=== PATIENT | female | born 1985 | race Caucasian/White ===

== ENCOUNTER 2016-04-16 10:32 | Emergency (ER) | payer OTHER ==
[2016-04-16] MEDS ORDERED: ONDANSETRON 4 MG ODT TAB ONE (11:21)
[2016-04-16 11:26] LABS: SPECIFIC GRAVITY 1.015 (1.001-1.030); URINE BILIRUBIN NEGATIVE (NEGATIVE); URINE BLOOD NEGATIVE (NEGATIVE); URINE GLUCOSE (UA) NEGATIVE (NEGATIVE); URINE LEUKOCYTE ESTERASE NEGATIVE (NEGATIVE); URINE NITRITE NEGATIVE (NEGATIVE); URINE PROTEIN NEGATIVE (NEGATIVE); URINE UROBILINOGEN NORMAL (0-1 mg/dl)
[2016-04-16 11:27] LABS: URINE APPEARANCE CLEAR; URINE COLOR YELLOW
[2016-04-16 11:29] LABS: HCG,QUALITATIVE URINE NEGATIVE
== END 2016-04-16 11:41 | disposition home or self-care (01) ==
LOC: ED 10:32
DX: M54.40 Lumbago with sciatica, unspecified side (principal); F17.210 Nicotine dependence, cigarettes, uncomplicated
CPT/HCPCS: 81025; 81003; 99283 ×2; 51798; A9270